=== PATIENT | male | born 2000 | race American Indian/Alaskan Native ===

== ENCOUNTER 2021-08-08 03:44 | Emergency (ER) | payer SELFPAY ==
[2021-08-08] MEDS ORDERED: predniSONE 20 MG TAB PO ONE (04:06)
[2021-08-08] MEDS ORDERED: ALBUTEROL 2.5 MG/3 ML NEBU IH ONE (04:06)
[2021-08-08] MEDS ORDERED: IPRATROPIUM 0.02% NEBU 2.5 ML IH ONE (04:06)
--- NOTE | 2021-08-08 04:16 | Emergency Department Report ---
HPI - General Chief Complaint: Adult Asthma Time Seen by Provider: 08/08/21 04:05 - HPI HPI: 21-year-old -[place] male presents to the emergency department with a 1 day history of progressively worsening wheezing, dry cough that he thinks is his asthma. He has a history of recurrent asthma and bronchitis. He tried using his albuterol inhaler for a few problems before it ran out but did not get much relief. He does not have a nebulizer machine. He also complains of some head congestion. He denies any fever, chest pain, lower extremity swelling, nausea, vomiting, back pain or diaphoresis. He denies being a tobacco smoker or any illicit drug use. No recent travel or sick contacts at home. Patient tried some Roshni-D for his symptoms without any relief. ED Past Medical Hx - Past Medical History Previous Medical History?: Yes Hx Asthma: Yes - Surgical History Past Surgical History?: No - Medications Home Medications: Home Medications Medication Instructions Recorded Confirmed Last Taken Type Albuterol Mdi (or & Nicu Only) 2 puff IH QID PRN #8.5 gram 08/08/21 Unknown Rx [ProAir HFA Inhaler] Azithromycin [Zithromax Z-RAMBO] 250 mg PO DAILY #6 tab 08/08/21 Unknown Rx Fluticasone [Flonase] 1 spray NS QDAY #1 bottle 08/08/21 Unknown Rx predniSONE [Deltasone] 20 mg PO BID #6 tab 08/08/21 Unknown Rx ED Review of Systems ROS: Stated complaint: WHEEZING/ANN,CONGESTION,CHEST PAIN Other details as noted in HPI Comment: All other systems reviewed and negative Constitutional: denies: chills, fever Eyes: denies: eye pain, vision change ENT: congestion. denies: ear pain Respiratory: cough, wheezing Cardiovascular: denies: chest pain, edema Gastrointestinal: denies: abdominal pain, vomiting Genitourinary: denies: dysuria, discharge Musculoskeletal: denies: back pain, arthralgia Skin: denies: rash, lesions Neurological: denies: headache, weakness Physical Exam - Physical Exam Vital Signs: Vital Signs 08/08/21 04:01 Temperature 97.9 F Pulse Rate 111 H Respiratory 18 Rate Blood Pressure 146/79 O2 Sat by Pulse 98 Oximetry Physical Exam: GENERAL: The patient is well-developed well-nourished. HENT: Normocephalic. Atraumatic. Patient has moist mucous membranes. EYES: Extraocular motions are intact. NECK: Supple. Trachea is midline. CHEST/LUNGS: Mild to moderate wheezing heard with both inspiration and expiration. No tachypnea or accessory muscle use. A productive sounding cough heard during examination. HEART/CARDIOVASCULAR: Regular. There is no tachycardia. There is no murmur. ABDOMEN: Abdomen is soft, nontender. Patient has normal bowel sounds. SKIN: Skin is warm and dry. NEURO: The patient is awake, alert, and oriented. The patient is cooperative. The patient has no focal neurologic deficits. Normal speech. MUSCULOSKELETAL: There is no tenderness or deformity. There is no limitation range of motion. ED Course Vital Signs 08/08/21 04:01 Temperature 97.9 F Pulse Rate 111 H Respiratory 18 Rate Blood Pressure 146/79 O2 Sat by Pulse 98 Oximetry ED Medical Decision Making - Radiology Data Radiology results: report reviewed CHEST PA AND LATERAL VIEWS INDICATION: SOB. COMPARISON: None. FINDINGS: Support devices: None. Heart: Within normal limits. Lungs/Pleura: There is mild airspace disease in the right lower lobe. Left lung is clear. IMPRESSION: 1. Mild right lower lobe pneumonia - Medical Decision Making This patient presents with a 24-hour history of progressively worsening wheezing and coughing, as well as head congestion. On examination he has mild to moderate wheezing/bronchospasm, but does not have tachypnea, conversational dyspnea, accessory muscle use, or signs of respiratory distress. A chest x-ray was done that shows a mild right lower lobe pneumonia. The patient was given a dose of prednisone and a breathing treatment with both albuterol and Atrovent. Upon reevaluation he appears and feels improved. He appears safe for discharge home at this time. He will be given a prescription for azithromycin, prednisone, and albuterol inhaler, and Flonase nasal spray. He has been given outpatient referrals for primary care. He will return to the emergency department with any worsening of his symptoms or with any acute distress. Critical Care Time: No Critical care attestation.: If time is entered above; I have spent that time in minutes in the direct care of this critically ill patient, excluding procedure time. ED Disposition Clinical Impression: Pneumonia Qualifiers: Pneumonia type: due to unspecified organism Laterality: right Lung location: lower lobe of lung Qualified Code(s): J18.9 - Pneumonia, unspecified organism Asthma Qualifiers: Asthma severity: unspecified severity Asthma persistence: unspecified Asthma complication type: with acute exacerbation Qualified Code(s): J45.901 - Unspecified asthma with (acute) exacerbation Disposition: 01 HOME / SELF CARE / HOMELESS Is pt being admited?: No Condition: Stable Instructions: Asthma Attack, Community-Acquired Pneumonia, Adult, Asthma (ED), Bacterial Pneumonia (ED) Additional Instructions: Please follow-up with a primary care physician in the next few days. I have given you a referral for a local primary care physician, Dr. Piña, and a primary care clinic, [facility]. Return to the emergency department with any worsening of your symptoms, new or concerning symptoms not addressed during this current emergency department visit, or with any acute distress. Prescriptions: predniSONE [Deltasone] 20 mg PO BID #6 tab Fluticasone [Flonase] 1 spray NS QDAY #1 bottle Albuterol Mdi (or & Nicu Only) [ProAir HFA Inhaler] 2 puff IH QID PRN #8.5 gram PRN Reason: Shortness Of Breath Azithromycin [Zithromax Z-RAMBO] 250 mg PO DAILY #6 tab Referrals: KRYSTINA PIÑA MD [Staff Physician] - 3-5 Days [facility] [Provider Group] - 3-5 Days Time of Disposition: 05:07
--- NOTE | 2021-08-08 04:28 | XRay Report ---
CHEST PA AND LATERAL VIEWS INDICATION: SOB. COMPARISON: None. FINDINGS: Support devices: None. Heart: Within normal limits. Lungs/Pleura: There is mild airspace disease in the right lower lobe. Left lung is clear. IMPRESSION: 1. Mild right lower lobe pneumonia Signer Name: Lee Andrews MD Signed: 08/08/2021 4:23 AM Workstation Name: [id number]
[2021-08-08 05:36] VITALS: BP 131/82
== END 2021-08-08 05:28 | disposition home or self-care (01) ==
LOC: ED 03:44
DX: J18.9 Pneumonia, unspecified organism (principal); J45.909 Unspecified asthma, uncomplicated; Z79.899 Other long term (current) drug therapy
CPT/HCPCS: 71046; 94640; 99283; J7512